=== PATIENT | male | born 1990 | race Caucasian/White ===

== ENCOUNTER 2017-05-22 08:36 | Emergency (ER) | payer OTHER ==
[~2017-05-22] VITALS: Ht 175.3 cm; Wt 77.3 kg
[2017-05-22] MEDS ORDERED: dexameTHASONE 20 MG/5 ML VIAL (J1100) IV ONE (09:45)
[2017-05-22] MEDS ORDERED: EPIP0.3I2 IJ (12:12)
[2017-05-22 12:31] VITALS: BP 135/69
== END 2017-05-22 12:38 | disposition home or self-care (01) ==
LOC: EDBD 08:36 → M ED 08:36
DX: K13.79 Other lesions of oral mucosa (principal); T78.40XA Allergy, unspecified, initial encounter; Y92.29 Other specified public building as the place of occurrence of the external cause; Y93.02 Activity, running; Y99.8 Other external cause status; Z88.0 Allergy status to penicillin; Z91.010 Allergy to peanuts
CPT/HCPCS: 93041; 94760; 96374; 99285; J1100